=== PATIENT | female | born 1970 | race Caucasian/White ===

== ENCOUNTER 2016-10-24 17:43 | Emergency (ER) | payer MEDICAID | END 2016-10-24 20:05 | disposition home or self-care (01) | LOC: D.ER 17:43 | DX: M77.9 Enthesopathy, unspecified (principal); F41.0 Panic disorder [episodic paroxysmal anxiety]; K31.1 Adult hypertrophic pyloric stenosis; I45.6 Pre-excitation syndrome ==

== ENCOUNTER 2018-11-20 16:50 | Emergency (ER) | payer MEDICAID ==
[~2018-11-20] VITALS: Ht 160 cm; Wt 61.4 kg
[2018-11-20 16:54] VITALS: Ht 160 cm; Wt 61.4 kg
[2018-11-20] MEDS ORDERED: MUPIROCIN22 GM TOPICAL (18:33)
[2018-11-20] MEDS ORDERED: CLEOCIN HCL300 MG PO (18:33)
[2018-11-20 19:30] LABS: BASOPHILS 0.3 % (0-2); EOSINOPHILS 3.1 % (0-7); HEMATOCRIT 32.7 % (36.0-48.0); HEMOGLOBIN 9.8 g/dL (12-16); IMMATURE GRANULOCYTES 0.2 % (0-5); LYMPHOCYTES 14.8 % (15-50); MCH 23.7 pg (26.0-34.0); MCV 79.2 fL (80.0-100.0); MEAN PLATELET VOLUME 8.9 fL (7.4-10.4); MONOCYTES 6.5 % (2-11); NEUTROPHILS 75.1 % (40-80); PLATELET COUNT 471 10x3/uL (130-400); RBC 4.13 10x6/uL (4.00-5.40); RDW 17.1 % (11.5-14.5); WBC 12.7 10x3/uL (4.8-10.8)
[2018-11-20 19:41] LABS: UDS - AMPHET POSITIVE QUAL (NEGATIVE); UDS - BARB NEGATIVE QUAL (NEGATIVE); UDS - BENZO NEGATIVE QUAL (NEGATIVE); UDS - COCAINE NEGATIVE QUAL (NEGATIVE); UDS - OPIATE NEGATIVE QUAL (NEGATIVE); UDS - PCP NEGATIVE QUAL (NEGATIVE); UDS - THC NEGATIVE QUAL (NEGATIVE)
[2018-11-20 19:42] LABS: HCG URINE NEGATIVE (NEGATIVE)
[2018-11-20 19:49] LABS: ALKALINE PHOSPHATASE 115 U/L (46-116); ALT (SGPT) 9 U/L (10-68); BILIRUBIN - TOTAL 0.12 mg/dL (0.2-1.3); CALC OSMOLALITY 284 mosm/kg (275-300); CALCIUM 8.3 mg/dL (8.5-10.1); CARBON DIOXIDE 28.6 mmol/L (21.0-32.0); CHLORIDE - SERUM 106 mmol/L (98-107); CREATININE - SERUM 0.7 mg/dL (0.6-1.3); GLUCOSE 112 mg/dL (74-106); MAGNESIUM - SERUM 1.9 mg/dL (1.8-2.4); PROTEIN - SERUM 7.5 g/dL (6.4-8.2); SODIUM 143 mmol/L (136-145); UREA NITROGEN 9 mg/dL (7-18); eGFR NON AFRICAN AMERICAN > 90 mL/min (90-120)
[2018-11-20 19:55] LABS: APPEARANCE HAZY (CLEAR); COLOR YELLOW (YELLOW)
[2018-11-20 19:56] LABS: BILIRUBIN NEGATIVE (NEGATIVE); GLUCOSE NEGATIVE (NEGATIVE); KETONE NEGATIVE (NEGATIVE); NITRITE NEGATIVE (NEGATIVE); PROTEIN NEGATIVE (NEGATIVE); RED CELLS - URINE >50 /hpf (0-5); SPECIFIC GRAVITY 1.015 (1.005-1.020); UROBILINOGEN NORMAL (NORMAL); WHITE CELLS - URINE 0-5 /hpf (0-5)
[2018-11-20 19:57] LABS: BACTERIA FEW /hpf (NONE SEEN); EPITHELIAL CELLS 0-5 /hpf (0-5)
[2018-11-21 08:09] VITALS: BP 134/90
[2018-11-21] MEDS ORDERED: ULTRAM50 MG PO (13:35)
== END 2018-11-21 13:49 | disposition home or self-care (01) ==
LOC: D.ER 16:50
PROVIDERS: Family Medicine
DX: L03.012 Cellulitis of left finger (principal); F15.10 Other stimulant abuse, uncomplicated; R45.851 Suicidal ideations